=== PATIENT | male | born 1985 ===

== ENCOUNTER 2021-02-01 12:17 | Outpatient (REF) | payer OTHER, SELFPAY ==
--- NOTE | 2021-02-01 14:55 | MHC.AU.AEV ---
Adult Audiological Evaluation Date of Visit: 02/01/21 Reason for Appointment: Audiological evaluation due to concern for decreased hearing. Mr. Durbin notes that he first noticed difficulty hearing and understanding speech, especially in the presence of background noise, around age 15. He reports that his partner notes that he listens to the TV and radio too loud. He also notes difficulties when talking on the phone and often asks for repetition. He feels that when he is in a group, others are communicating and hearing well but he is struggling to follow conversations in background noise. Does patient feel they have a hearing loss?: Unsure If Yes, Which Ear?: Both Ears When Was Hearing Difficulty First Noticed?: ~20 years ago Has hearing been tested previously?: Yes Previous Hearing Test Results: Had a screening at his PCP's office, which he did not pass. 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 Reduced 5000 & 7100 Hz. Analysis: Present emissions suggest normal cochlear function. Reduced/Absent emissions suggest cochlear dysfunction. Left Ear Results: Present [id number], 6000, & 8000 Hz. Reduced 5000 & 7100 Hz. Analysis: Present emissions suggest normal cochlear function. Reduced/Absent emissions suggest cochlear dysfunction. Hearing Evaluation: Transducer(s) Used: Insert Earphones Method: Conventional Audiometry Stimuli Used: Pure Tones Right Ear: Description of Hearing: Normal hearing from 250-8000 Hz. Left Ear: Description of Hearing: Normal hearing from 250-8000 Hz. Speech Recognition Threshold (SRT): Method Used: Monitored Live Voice Stimuli Used: Spondee Words Right Ear: 0 dBHL Left Ear: 5 dBHL Word Discrimination: Method: Recorded Lists Word Lists Used: [employer]6 Right Ear: 96% at 50 dBHL Left Ear: 100% at 50 dBHL QuickSIN: 1 dB SNR loss when present binaurally at 60 dBHL, indicating normal speech in noise understanding abilities. SCAN-3 for Adolescents and Adults: Test for Auditory Processing Disorders (SCAN-3 A): This is a screening test to determine if an adolescent or adult is at risk for an Auditory Processing Disorder. The screening evaluates three areas of Auditory Processing skills and is scored by an age-appropriate Pass/Fail criterion. Gap Detection Test: This is a test of Temporal Processing and measures the ability to detect brief gaps of silence of different durations. The listener must be able to hear 2 tones during 3 or more consecutive presentations of test stimuli. Mr. Durbin passed the Gap Detection Test hearing 2 tones in 5 consecutive presentations. Auditory Figure-Ground 0dB: Listening in Noise skills are assessed with this test and identifies the ability to understand speech in the presence of background noise. A 35-year old listener must be able to properly understand 27 or more words out of 40 presented. Mr. Durbin passed the Auditory Figure-Ground Test with a score of 33. Competing Words-Free Recall: This test looks at Dichotic Listening skills and the ability to process competing speech signals. Monosyllabic words are presented to each ear at the same time. The 35-year old listener must repeat 26 or more of the 40 words presented. Mr. Durbin passed with a score of 26 for the Competing Words-Free Recall test. Interpretation of results: Today's testing indicates overall normal hearing. Normal scores on the SCAN-3 A and QuickSIN suggest normal auditory processing abilities. Recommendations: No further audiological action is indicated at this time. Audiological re-evaluation if changes are noted. Diagnosis: Primary Diagnosis: H93.293 Abnormal Auditory Perception Services Performed: Comprehensive Audiological Evaluation (CPT 63969) Diagnostic Otoacoustic Emissions (CPT 51381, 26+TC) Tympanometry (CPT 46149) Unlisted Otorhinolaryngological Service or Procedure (CPT 26894) Signature: Provider: Shannan Jolly, CCC-A
== END 2021-02-01 12:18 | disposition home or self-care (01) ==
LOC: HO.SH 12:17
PROVIDERS: Visit Provider Family Medicine
DX: H93.293 Other abnormal auditory perceptions, bilateral (principal)
CPT/HCPCS: 92557; 92567; 92588; 92700